=== PATIENT | male | born 1985 | race Two or more races ===

== ENCOUNTER 2021-11-25 08:56 | Outpatient (CLI) | payer OTHER | END 2021-11-25 09:07 | disposition home or self-care (01) | LOC: RX STUDY 08:56 | PROVIDERS: ATTEND Internal Medicine Gastroenterology | DX: K57.90 Diverticulosis of intestine, part unspecified, without perforation or abscess without bleeding (principal); K59.09 Other constipation; K56.600 Partial intestinal obstruction, unspecified as to cause; K57.32 Diverticulitis of large intestine without perforation or abscess without bleeding ==

== ENCOUNTER 2022-04-24 11:15 | Inpatient (IN) | payer OTHER ==
[~2022-04-24] VITALS: Ht 175.3 cm; Wt 59.0 kg
[2022-04-29] MEDS ORDERED: HYOSCYAMINE0.125 MG (08:03)
== END 2022-05-02 15:09 | disposition home or self-care (01) | DRG 330 ==
LOC: O/R 04-29 06:08 → SURH 04-29 10:15 → SURG 04-29 10:41 → SURH 04-29 11:15 → SURG 05-02 15:09
PROVIDERS: ADMIT Colon & Rectal Surgery; ATTEND Colon & Rectal Surgery
PROC: 0DTN4ZZ Resection of Sigmoid Colon, Percutaneous Endoscopic Approach (ICD-10-PCS; 2022-04-29)
PROC: 0DBP4ZZ Excision of Rectum, Percutaneous Endoscopic Approach (ICD-10-PCS; principal; 2022-04-29 10:15)
DX: K57.32 Diverticulitis of large intestine without perforation or abscess without bleeding (principal); K92.1 Melena; D12.6 Benign neoplasm of colon, unspecified; Z20.822 Contact with and (suspected) exposure to COVID-19

== ENCOUNTER → 2022-05-07 | Emergency (ER) | payer OTHER ==
[~2022-05-07] VITALS: Ht 203.2 cm; Wt 72.6 kg
[~2022-05-07] MED LIST: HYOSCYAMINE0.125 MG
== END | disposition left against medical advice (07) ==
LOC: ER 23:18
DX: Z53.21 Procedure and treatment not carried out due to patient leaving prior to being seen by health care provider (principal)